=== PATIENT | female | born 1990 | race Two or more races ===

== ENCOUNTER 2020-12-23 05:50 | Emergency (ER) | payer OTHER ==
[~2020-12-23] VITALS: Ht 165.1 cm; Wt 81.6 kg
[2020-12-23 06:51] LABS: Basophils # (auto) 0.1 10 ^3/uL (0-0.2); Basophils % (auto) 1.2 % (0.0-2.0); Eosinophils # (auto) 0.1 10 ^3/uL (0-0.8); Eosinophils % (auto) 1.2 % (0.0-7.0); Hematocrit 39.4 % (36.0-46.0); Hemoglobin 13.5 g/dL (12.2-16.2); Lymphocytes # (auto) 2.4 10 ^3/uL (0.4-5.4); Lymphocytes % (auto) 20.3 % (10.0-50.0); Mean Corpuscular Hemoglobin 29.2 pg (28.0-32.0); Mean Corpuscular Hgb Conc. 34.2 g/dL (32.0-36.0); Mean Corpuscular Volume 85.4 fL (80.0-100.0); Monocytes # (auto) 0.9 10 ^3/uL (0-1.3); Monocytes % (auto) 7.9 % (0.0-12.0); Neutrophils # (auto) 8.2 10 ^3/uL (1.6-8.6); Neutrophils % (auto) 69.4 % (37.0-80.0); Platelet Count (auto) 257 10^3/uL (140-450); Red Blood Cells 4.61 10^6/uL (4.0-5.20); Red Cell Distribution Width 14.5 % (11.8-14.3); White Blood Cell 11.8 10^3/uL (4.4-10.8)
[2020-12-23 07:00] LABS: Urine Bacteria NONE SEEN /hpf (None Seen); Urine Blood 3+ /uL (Negative); Urine Mucus FEW (None Seen); Urine Specific Gravity 1.027 (1.001-1.035); Urine Sperm PRESENT /hpf (None Seen); Urine WBC 5 /hpf (0 - 5)
[2020-12-23] MEDS ORDERED: SODIUM CHLORIDE 0.9% 1,000 ML IV ONE ×2 (07:15)
[2020-12-23 07:25] LABS: Potassium 3.8 mmol/L (3.5-5.1)
[2020-12-23 07:33] LABS: Albumin 3.8 g/dL (3.4-5.0); BUN/Creatinine Ratio 16.7; Bilirubin, Total 0.6 mg/dL (0.2-1.0); Calcium 8.9 mg/dL (8.5-10.1); Total Protein 8.2 g/dL (6.4-8.2)
[2020-12-23] MEDS ORDERED: ONDANSETRON HCL 4 MG/2 ML VIAL IV ONE (08:30)
[2020-12-23] MEDS ORDERED: MORPHINE SULF INJ 2 MG/ML SYRINGE 1ML IV ONE (08:30)
[2020-12-23] MEDS ORDERED: PIPERACILLIN-TAZOB 3.375GM 100 ML IV ONE (09:30)
[2020-12-23 14:08] LABS: INR 1.06 (0.9-1.15); Partial Thromboplastin Time 32.9 sec (23.0-31.2)
[2020-12-23] MEDS ORDERED: MORPHINE SULFATE 4 MG/ML SYR/VIAL IV ONE (15:00)
[2020-12-23 17:17] VITALS: BP 120/71
== END 2020-12-23 17:40 | disposition short-term general hospital (02) ==
LOC: ER 05:50
DX: K35.80 Unspecified acute appendicitis (principal); Z91.040 Latex allergy status; Z20.822 Contact with and (suspected) exposure to COVID-19
CPT/HCPCS: 36415; 74176; 80053; 81001; 81025; 83605; 83690; 85025; 85049; 85610; 85730; 86850; 86900; 86901; 87040; 87426; 96361; 96365; 96366; 96375; 96376; 99285; J2270; J2405; J2543; J7030; 93005

== ENCOUNTER 2022-04-07 19:57 | Emergency (ER) | payer MEDICAID ==
[~2022-04-07] VITALS: Ht 152.4 cm; Wt 90.9 kg
[2022-04-07] MEDS ORDERED: ACETAMINOPHEN 500 MG TAB PO ONE (21:45)
[2022-04-07 23:11] LABS: Urine Bacteria NONE SEEN /hpf (None Seen); Urine Blood Negative /uL (Negative); Urine Specific Gravity 1.004 (1.001-1.035); Urine WBC <1 /hpf (0 - 5)
[2022-04-08] MEDS ORDERED: PRED20TA2 PO (01:41)
[2022-04-08] MEDS ORDERED: VALA1TAB PO (01:43)
[2022-04-08] MEDS ORDERED: DOXY-340 PO (01:44)
[2022-04-08] MEDS ORDERED: ACYCLOVIR 400 MG TAB PO ONE (01:45)
[2022-04-08] MEDS ORDERED: predniSONE 20 MG TAB PO ONE (01:45)
[2022-04-08 02:55] VITALS: BP 120/72
== END 2022-04-08 03:13 | disposition home or self-care (01) ==
LOC: ER 19:59
DX: G51.0 Bell's palsy (principal); Z79.2 Long term (current) use of antibiotics; Z79.899 Other long term (current) drug therapy; Z91.040 Latex allergy status
CPT/HCPCS: 70450; 81001; 81025; 99284; J7512